=== PATIENT | male | born 1980 | race Caucasian/White ===

== ENCOUNTER 2019-01-27 12:49 | Emergency (ER) | payer MEDICAID, OTHER ==
[2019-01-27 13:13] VITALS: TEMP 97
--- NOTE | 2019-01-27 14:17 | ED PDOC ---
HPI: Back Time Seen by Provider: 01/27/19 13:20 Chief Complaint (Nursing): Back Pain Chief Complaint (Provider): Back Pain History Per: Patient History/Exam Limitations: no limitations Onset/Duration Of Symptoms: Days (x3) Current Symptoms Are (Timing): Still Present Additional Complaint(s): 38 year old male presents to the ED for evaluation of back pain. Patient reports that three days ago he slipped in his home and struck his right upper back onto a counter. Since, he notes pain localized to the site of the impact, worse with movement. Otherwise, denies hematuria, nausea, vomiting, chest pain, and incontinence. PMD: Prasanna Owen Past Medical History Reviewed: Historical Data, Nursing Documentation, Vital Signs Vital Signs: Last Vital Signs Temp 97 F L 01/27/19 13:10 Pulse 97 H 01/27/19 13:10 Resp 16 01/27/19 13:10 BP 149/91 H 01/27/19 13:10 Pulse Ox 99 01/27/19 13:10 - Medical History PMH: No Chronic Diseases - Surgical History Surgical History: No Surg Hx - Family History Family History: States: Unknown Family Hx - Home Medications Home Medications: Ambulatory Orders Medication Instructions Recorded Naproxen [Naprosyn] 500 mg PO BID PRN #14 tab 01/27/19 Tramadol HCl [Ultram] 50 mg PO BID PRN #10 tablet 01/27/19 - Allergies Allergies/Adverse Reactions: Allergies Allergy/AdvReac Type Severity Reaction Status Date / Time No Known Allergies Allergy Verified 01/27/19 13:10 Review of Systems ROS Statement: Except As Marked, All Systems Reviewed And Found Negative Cardiovascular: Negative for: Chest Pain Gastrointestinal: Negative for: Nausea, Vomiting Genitourinary Male: Negative for: Incontinence, Hematuria Musculoskeletal: Positive for: Back Pain (upper right, worse with movement) Physical Exam - Reviewed Nursing Documentation Reviewed: Yes Vital Signs Reviewed: Yes - Physical Exam Appears: Positive for: No Acute Distress Cardiovascular/Chest: Positive for: Regular Rate, Rhythm Respiratory: Positive for: Normal Breath Sounds. Negative for: Respiratory Distress Back: Positive for: Normal Inspection (no ecchymosis), R CVA Tenderness. Negative for: L CVA Tenderness, Vertebral Tenderness Neurologic/Psych: Positive for: Alert, Oriented (x3) - ECG O2 Sat by Pulse Oximetry: 99 (RA) Pulse Ox Interpretation: Normal Medical Decision Making Medical Decision Making: Time: 1339 Initial Impression: right upper back pain s/p fall Initial Plan: --XR ribs and chest, right --Flexeril 10mg PO --Lidoderm 1 ea TD --Ultram 50mg PO --Urinalysis Rib series x-ray: Acute nondisplaced fracture in the posterior 12th rib. Pt. given incentive spirometer and directions of its use by respiratory therapist. Follow up with [facility] for further evaluation return to ED immediately if symptoms worsen. Reports pain has improved but still present. Scribe Attestation: Documented by Luz Camejo, acting as a scribe for Sim Tang PA-C. Provider Scribe Attestation: All medical record entries made by the Scribe were at my direction and personally dictated by me. I have reviewed the chart and agree that the record accurately reflects my personal performance of the history, physical exam, medical decision making, and the department course for this patient. I have also personally directed, reviewed, and agree with the discharge instructions and disposition. Disposition - Clinical Impression Clinical Impression: Rib fracture - Patient ED Disposition Is Patient to be Admitted: No - Disposition Referrals: [facility] [Outside] Disposition: Routine/Home Disposition Time: 16:00 Condition: IMPROVED Additional Instructions: FOLLOW UP WITH YOUR DOCTOR FOR FURTHER EVALUATION RETURN TO ED IMMEDIATELY IF SYMPTOMS WORSEN KIMBERLEY WATERMAN, thank you for letting us take care of you today. Your provider was Kenneth Maldonado MD and you were treated for LOWER BACK PAIN. The emergency medical care you received today was directed at your acute symptoms. If you were prescribed any medication, please fill it and take as directed. It may take several days for your symptoms to resolve. Return to the Emergency Department if your symptoms worsen, do not improve, or if you have any other problems. Please contact your doctor or call one of the physicians/clinics you have been referred to that are listed on the Patient Visit Information form that is included in your discharge packet. Bring any paperwork you were given at discharge with you along with any medications you are taking to your follow up visit. Our treatment cannot replace ongoing medical care by a primary care provider outside of the emergency department. Thank you for allowing the [facility] team to be part of your care today. If you had an X-Ray or CT scan: A Radiologist will review the ED reading if any change in treatment is needed we will contact you. If you had a blood, urine, or wound culture: It will take several days for the results, if any change in treatment is needed we will contact you. If you had an STI test: It will take 48 hours for the results. Please call after 1 week if you have not heard back. Prescriptions: Naproxen [Naprosyn] 500 mg PO BID PRN #14 tab PRN Reason: Pain Tramadol HCl [Ultram] 50 mg PO BID PRN #10 tablet PRN Reason: Other Instructions: Rib Fracture (DC) Forms: [employer] (Vietnamese), [facility] ED School/Work Excuse Print Language: HUNGARIAN
[2019-01-27] MEDS ORDERED: Lidocaine 5% Patch TD ONE (14:35)
[2019-01-27] MEDS: Lidocaine 5% Patch TD STA (14:55)
--- NOTE | 2019-01-27 15:32 | RAD ---
Date of service: 01/27/2019 PROCEDURE: Radiographs of the Chest and Right Ribs. HISTORY: trauma COMPARISON: None available. TECHNIQUE: Frontal radiograph of the chest and multiple oblique radiographs of the right ribs were obtained. FINDINGS: RIGHT RIBS: There is an acute nondisplaced fracture in the right posterior 12th rib. Bone alignment and mineralization are normal. LUNGS: The lungs are well inflated and clear. PLEURA: No pneumothorax or pleural fluid. CARDIOVASCULAR: Normal cardiac size. No pulmonary vascular congestion. No aortic atherosclerotic calcification present OTHER FINDINGS: None. IMPRESSION: Acute nondisplaced fracture in the posterior 12th rib. Clear lungs. The final report is tagged to the PA review folder.
[2019-01-27 15:49] LABS: SQUAMOUS EPITHIAL 2 /hpf (0-5); URINE BACTERIA RARE (<OCC); URINE BILIRUBIN NEGATIVE (NEGATIVE); URINE BLOOD NEGATIVE (NEGATIVE); URINE CLARITY SLIGHTY-CLOUDY (Clear); URINE COLOR YELLOW (YELLOW); URINE GLUCOSE (UA) NEG (NEGATIVE); URINE LEUKOCYTE ESTERASE NEG Leu/uL (Negative); URINE PROTEIN NEGATIVE (NEGATIVE); URINE UROBILINOGEN 0.2-1.0 mg/dL (0.2-1.0)
[2019-01-27 16:59] VITALS: BP 144/87; PULSE 72; RESP 18
[2019-01-27 17:45] VITALS: O2SAT 99
== END 2019-01-27 17:14 | disposition home or self-care (01) ==
LOC: H.ER 12:49
DX: S22.49XA Multiple fractures of ribs, unspecified side, initial encounter for closed fracture (principal); W22.8XXA Striking against or struck by other objects, initial encounter; Y92.89 Other specified places as the place of occurrence of the external cause